=== PATIENT | female | born 1985 | race Caucasian/White ===

== ENCOUNTER 2016-04-14 01:03 | Emergency (ER) | payer BC ==
[2016-04-14] MEDS ORDERED: TRAMADOL 50 MG TAB ONE (02:05)
[2016-04-14] MEDS ORDERED: LIDOCAINE 2% VISC 15 ML UDC ONE (02:06)
== END 2016-04-14 02:17 | disposition home or self-care (01) ==
LOC: ER 01:03
DX: K08.89 Other specified disorders of teeth and supporting structures (principal); G89.18 Other acute postprocedural pain; Z79.899 Other long term (current) drug therapy